=== PATIENT | male | born 2000 | race African-American/Black ===

== ENCOUNTER 2024-06-13 15:29 | Emergency (ER) | payer SELFPAY ==
[~2024-06-13 15:29] MED LIST: Iopamidol-370 76% 500 ML MDV (1 ML CHARGE) ONE
[2024-06-13] MEDS ORDERED: Ibuprofen 800 MG TAB ONE (16:47)
[2024-06-13] MEDS ORDERED: Boostrix 0.5 ML (Tdap) VIAL (>/=7 yrs of age) ONE (16:47)
== END 2024-06-13 18:23 | disposition home or self-care (01) ==
LOC: EDSEX 15:29 → ERS 15:29
DX: S06.0X0A Concussion without loss of consciousness, initial encounter (principal); S00.83XA Contusion of other part of head, initial encounter; S60.512A Abrasion of left hand, initial encounter; S60.511A Abrasion of right hand, initial encounter; Z23 Encounter for immunization; W22.8XXA Striking against or struck by other objects, initial encounter
CPT/HCPCS: 70450; 72125; 90471; 90715; Q9967